=== PATIENT | male | born 1995 | race Caucasian/White ===

== ENCOUNTER 2018-09-09 10:34 | Emergency (ER) | payer BC ==
[2018-09-09 10:55] VITALS: BP 147/82
--- NOTE | 2018-09-09 11:05 | UC ---
Abdominal Pain Male HPI - HPI Summary HPI Summary: 23-year-old male comes in with a chief complaint of abdominal pain. Pain started several hours ago. Started in the mid abdomen. Worst pains in the epigastrium but he also has right lower quadrant pain. He has a history of kidney stones and he said this is not like kidney stones. Started normal bowel movement normal urine. No fevers measured. Pain is worse with any kind of movement. Less movement makes the pain is less bad but it still remains. - History of Current Complaint Chief Complaint: UCAbdominalPain Stated Complaint: ABD PAIN/CHEST PAIN Time Seen by Provider: 09/09/18 10:56 Pain Intensity: 8 - Allergies/Home Medications Allergies/Adverse Reactions: Allergies Allergy/AdvReac Type Severity Reaction Status Date / Time No Known Allergies Allergy Verified 09/09/18 10:49 Home Medications: Home Medications diphenhydrAMINE HCl [Allergy Medication] 25 mg PO DAILY 09/09/18 [History Confirmed 09/09/18] PMH/Surg Hx/FS Hx/Imm Hx Previously Healthy: Yes GI/ History: Kidney Stones - Surgical History Surgical History: Yes Surgery Procedure, Year, and Place: tubes - Family History Known Family History: Positive: Non-Contributory - Social History Alcohol Use: Occasionally Substance Use Type: None Smoking Status (MU): Never Smoked Tobacco Review of Systems All Other Systems Reviewed And Are Negative: Yes Constitutional: Positive: Negative Skin: Positive: Negative Eyes: Positive: Negative ENT: Positive: Negative Respiratory: Positive: Negative Cardiovascular: Positive: Negative Gastrointestinal: Positive: Abdominal Pain Genitourinary: Positive: Negative Motor: Positive: Negative Neurovascular: Positive: Negative Musculoskeletal: Positive: Negative Neurological: Positive: Negative Psychological: Positive: Negative Is Patient Immunocompromised?: No Physical Exam Triage Information Reviewed: Yes Appearance: Well-Nourished Vital Signs: Initial Vital Signs Temp 97.9 F 09/09/18 10:51 Pulse 72 09/09/18 10:51 Resp 20 09/09/18 10:51 BP 147/82 09/09/18 10:51 Pulse Ox 100 09/09/18 10:51 Vital Signs Reviewed: Yes Eye Exam: Normal Eyes: Positive: Conjunctiva Clear Neck: Positive: Supple Respiratory: Positive: Lungs clear, Normal breath sounds, No respiratory distress Cardiovascular: Positive: RRR Abdomen Description: Positive: Other: - Tender to palpation epigastrium and ruq. Positive rt heel strike. Negative obturator sign. Bowel Sounds: Positive: Hypoactive Musculoskeletal Exam: Normal Musculoskeletal: Positive: Strength Intact, ROM Intact Neurological Exam: Normal Neurological: Positive: Alert, Muscle Tone Normal Psychological Exam: Normal Psychological: Positive: Age Appropriate Behavior Skin Exam: Normal Abd Pain Male Course/Dx - Course Course Of Treatment: I recommended further evaluation in the Emergency Department. Patient declined ambulance transport, will go by POV. Discussed with Dr Strauss at [facility] ED. - Differential Dx/Clinical Impression Provider Diagnosis: Right lower quadrant abdominal pain, Epigastric abdominal pain Discharge - Sign-Out/Discharge Documenting (check all that apply): Patient Departure All imaging exams completed and their final reports reviewed: No Studies - Discharge Plan Condition: Stable Disposition: HOME-RECOMMEND TO ED Patient Education Materials: Acute Abdominal Pain (ED) Referrals: [facility] [place] [facility] [Outside] Additional Instructions: GO DIRECTLY TO THE EMERGENCY DEPARTMENT FOR FURTHER EVALUATION. - Billing Disposition and Condition Condition: STABLE Disposition: Home-Recommend to ED
== END 2018-09-09 11:11 | disposition home health service (06) ==
LOC: UCCORT 10:34
DX: R10.31 Right lower quadrant pain (principal); R10.13 Epigastric pain; Z87.442 Personal history of urinary calculi
CPT/HCPCS: 99202; G0463